=== PATIENT | female | born 1995 | race Caucasian/White ===

== ENCOUNTER 2020-07-22 09:59 | Inpatient (IN) | payer OTHER ==
[~2020-07-22] VITALS: Ht 170.2 cm; Wt 104.1 kg
[~2020-07-22 09:59] MED LIST: MOTRIN 800800 MG/TAB PO; NATURAL IRON65 MG; NO HOME MEDICATIONS; NORCO 325 MG-51 TAB PO; PERCOCET 325 MG1 TA2 PO; PRENATAL; PRILOSEC 20MG20 MG PO; ZITHROMAX TRI-500 MG PO
[2020-08-12] VITALS (14 sets, daily range): BP systolic 105–131; BP diastolic 34–59; PULSE 61–96; TEMP 97.6–98
--- NOTE | 2020-08-12 09:30 | NUR ---
Patient ambulates to 213, changed into gown, FHR/TOCO monitors placed and explained. Plan of care discussed. 0945: IV started in left hand, blood obtained and to lab, LR infusing. Assessment completed, consents signed, packet given. Patient prepped for surgery. Questions answered.
[2020-08-12 09:48] LABS: BASO % 0.3 % (0.0-2.0); EOS % 0.4 % (0-4.0); GRAN # 7.7 (1.4-6.5); GRAN % 75.6 % (42.2-75.2); HEMOGLOBIN 10.9 g/dl (12.5-16.0); LYMPH # 1.6 (1.2-3.4); MEAN CELL VOLUME 86 fl (80.0-100.0); MEAN CORPUSCULAR HEMOGLOBIN 28 pg (27.0-31.0); MEAN CORPUSCULAR HGB CONC 32 g/dl (33.0-37.0); MEAN PLATELET VOLUME 10.6 fl (7.4-10.4); MONO # 0.7 (0.1-0.6); MONO % 7.2 % (1.7-9.3); PLATELET COUNT 287 K/mm3 (130-400); RED BLOOD COUNT 3.91 M/mm3 (4.10-5.30)
[2020-08-12 09:50] LABS: HEMATOCRIT 33.6 % (37.0-47.0)
--- NOTE | 2020-08-12 17:15 | NUR ---
Patient ambulates to bathroom with standby assist, jaquez catheter removed and patient tolerates well, pericare done and new gown/underwear/pad on. Plan of care discussed.
[2020-08-13 04:00] VITALS: BP 131/52; PULSE 68; TEMP 98.1
[2020-08-13 07:45] VITALS: BP 114/58; PULSE 66; TEMP 97.6
[2020-08-13] MEDS ORDERED: MOTRIN 800800 MG/TAB PO (08:25)
[2020-08-13] MEDS ORDERED: PERCOCET 325 MG1 TA2 PO (08:25)
--- NOTE | 2020-08-13 09:40 | NUR ---
Initial visit; Patient thanked [employer] Operator for offering congratulations and God's blessings for the of her son. [employer] Operator thanked patient for choosing [facility].
[2020-08-13 16:45] VITALS: BP 116/57; PULSE 86; TEMP 98.4
[2020-08-13 20:00] VITALS: BP 112/59; PULSE 73; TEMP 98.1
[2020-08-14 07:50] VITALS: BP 114/56; PULSE 63; TEMP 97.7
--- NOTE | 2020-08-14 08:00 | NUR ---
Rests in bed, alert. Request pain medication. Percocet 5/325 mg one given per request and as ordered. Denies any other need at this time.
--- NOTE | 2020-08-14 13:45 | NUR ---
1351 Request pain medication. Percocet 5/325 mg one given per request and as ordered.
--- NOTE | 2020-08-14 16:45 | NUR ---
Rests in bed, alert. baby. Denies any needs at this time.
[2020-08-14 17:10] VITALS: BP 119/72; PULSE 66; TEMP 97.6
--- NOTE | 2020-08-14 18:15 | NUR ---
Motrin 800 mg, percocet 5/325 mg one given as ordered.
[2020-08-14 20:00] VITALS: BP 121/47; PULSE 70; TEMP 98.2
[2020-08-15 07:50] VITALS: BP 120/56; PULSE 70; TEMP 97.6
== END 2020-08-15 11:45 | disposition home or self-care (01) | DRG 788 ==
LOC: OB 08-12 09:23
PROVIDERS: ADMIT Obstetrics & Gynecology
PROC: 10D00Z1 Extraction of Products of Conception, Low, Open Approach (ICD-10-PCS; principal; 2020-08-12)
DX: O34.211 Maternal care for low transverse scar from previous cesarean delivery (principal); Z3A.39 39 weeks gestation of pregnancy; Z37.0 Single live birth
CPT/HCPCS: J0690; J1885; J2175; J2370; J2405; J2550; J2590; J3010; J7120

== ENCOUNTER → 2020-08-08 | Outpatient (CLI) | payer OTHER | LOC: ZCOL.LAB 08:00 | DX: Z20.822 Contact with and (suspected) exposure to COVID-19 (principal) ==

== ENCOUNTER 2022-06-15 15:35 | Emergency (ER) | payer OTHER ==
[~2022-06-15] VITALS: Ht 175.3 cm; Wt 90.9 kg
[2022-06-15 16:47] LABS: COLLECTION METHOD CLEAN CATCH
[2022-06-15 16:54] LABS: BASO # 0.1 K/mm3 (0.0-0.2); BASO % 0.4 % (0.0-2.0); EOS # 0.1 K/mm3 (0.0-0.7); EOS % 0.7 % (0.0-4.0); GRAN # 10.8 K/mm3 (1.4-6.5); GRAN % 80.9 % (42.2-75.2); HEMOGLOBIN 11.4 g/dl (12.5-16.0); LYMPH # 1.7 K/mm3 (1.2-3.4); LYMPH % 12.6 % (20.0-51.0); MEAN CELL VOLUME 88 fl (80.0-100.0); MEAN CORPUSCULAR HEMOGLOBIN 30 pg (27-31); MEAN CORPUSCULAR HGB CONC 34 g/dl (33.0-37.0); MEAN PLATELET VOLUME 10.9 fl (7.4-10.4); MONO # 0.7 K/mm3 (0.1-0.6); MONO % 5.1 % (1.7-9.3); PLATELET COUNT 287 K/mm3 (130-400); RED BLOOD COUNT 3.85 M/mm3 (4.10-5.30); REDCELL DISTRIBUTION WIDTH-CV 13.1 % (11.5-14.5)
[2022-06-15 16:56] LABS: HEMATOCRIT 33.9 % (37.0-47.0)
[2022-06-15 17:03] LABS: URINE BACTERIA Rare /hpf (NONE SEEN); URINE RBC 0-2 /hpf (0-2)
[2022-06-15 17:04] LABS: PH 6.5 (5.0-8.5); URINE APPEARANCE Clear (CLEAR/HAZY); URINE BLOOD Negative (NEGATIVE); URINE COLOR Yellow (YELLOW); URINE GLUCOSE Negative (NEGATIVE); URINE KETONE Negative (NEGATIVE); URINE NITRATE Negative (NEGATIVE); URINE PROTEIN(semi-quant) Negative (NEGATIVE); URINE UROBILINOGEN 0.2 E.U/dL (0.2-1.0)
[2022-06-15 17:09] LABS: ALBUMIN 2.6 gm/dL (3.5-5.0); BILIRUBIN,TOTAL 0.3 mg/dL (0.2-1.2); CALCIUM 8.8 mg/dL (8.4-10.2); CREATININE, serum 0.62 mg/dL (0.57-1.11); POTASSIUM 3.8 mmol/L (3.5-4.5)
[2022-06-15] MEDS ORDERED: AMOXICILLIN 8751 TAB PO (18:24)
[2022-06-15 18:40] VITALS: BP 112/97; PULSE 87; TEMP 98.1
== END 2022-06-15 18:40 | disposition home or self-care (01) ==
LOC: COL.ER 15:35
PROVIDERS: Nurse Practitioner
DX: O99.512 Diseases of the respiratory system complicating pregnancy, second trimester (principal); J32.1 Chronic frontal sinusitis; Z3A.20 20 weeks gestation of pregnancy; Z28.311 Partially vaccinated for COVID-19
CPT/HCPCS: J1200; J2270; J2550; J2765; J7030